=== PATIENT | male | born 1960 | race Caucasian/White ===

== ENCOUNTER 2017-02-25 09:01 | Outpatient (CLI) | payer OTHER ==
[~2017-02-25] VITALS: Ht 188 cm; Wt 70.0 kg
[~2017-02-25 09:01] MED LIST: DILT120C PO; LSNP10T PO; SULF-222 PO
[2017-02-25] MEDS ORDERED: MULT-1067 PO (09:20)
[2017-02-25] MEDS ORDERED: DILT180T7 PO (09:20)
[2017-02-25 09:23] VITALS: BP 126/81
[2017-02-25 09:49] LABS: BASOPHILS % (AUTO) 1 % (0-10); EOSINOPHILS % (AUTO) 0 % (0-10); LYMPHOCYTES # (AUTO) 1.5 X 10^3 (1.0-4.0); LYMPHOCYTES % (AUTO) 27 % (12-44); MEAN CORPUSCULAR HEMOGLOBIN 30 PG (25-34); MEAN CORPUSCULAR HGB CONC 34 G/DL (32-36); MEAN CORPUSCULAR VOLUME 87 FL (80-99); MEAN PLATELET VOLUME 8.6 FL (7.4-10.4); MONOCYTES # (AUTO) 0.5 X 10^3 (0.0-1.0); MONOCYTES % (AUTO) 9 % (0-12); NEUTROPHILS # (AUTO) 3.4 X 10^3 (1.8-7.8); NEUTROPHILS % (AUTO) 63 % (42-75); PLATELET COUNT 277 10^3/uL (130-400); RED BLOOD COUNT 4.79 10^6/uL (4.35-5.85); RED CELL DISTRIBUTION WIDTH 12.7 % (10.0-14.5); WHITE BLOOD COUNT 5.5 10^3/uL (4.3-11.0)
== END 2017-02-25 10:04 | disposition home or self-care (01) ==
LOC: PREOP 09:01
PROVIDERS: ATTEND Surgery
DX: Z01.812 Encounter for preprocedural laboratory examination (principal); Z11.2 Encounter for screening for other bacterial diseases; K40.90 Unilateral inguinal hernia, without obstruction or gangrene, not specified as recurrent
CPT/HCPCS: 36415; 85025; 87081

== ENCOUNTER 2017-03-03 09:20 | Day surgery (SDC) | payer OTHER ==
[~2017-03-03] VITALS: Ht 188 cm; Wt 70.0 kg
[~2017-03-03 09:20] MED LIST changes: +DILT180T7 PO; +MULT-1067 PO
[2017-03-03] MEDS ORDERED: LACTATED RINGERS 1,000 ML IV PRN (09:36)
[2017-03-03] MEDS ORDERED: ceFAZolin 1 GM/NS 50 ML IVPB IV ONE ×2 (09:45)
[2017-03-03] MEDS ORDERED: CATHETER FLUSH 10 ML SYR IV PRN (09:45)
[2017-03-03 09:58] VITALS: BP 124/88
--- NOTE | 2017-03-03 10:13 | Progress Note-Pre Operative ---
Pre-Operative Progress Note H&P Reviewed The H&P was reviewed, patient examined and no changes noted. Date Seen by Provider: Mar 03, 2017 Time Seen by Provider: 10:12 Date H&P Reviewed: Mar 03, 2017 Time H&P Reviewed: 10:13 Pre-Operative Diagnosis: left inguinal hernia HAYDE HUIZAR DO Mar 03, 2017 10:13
[2017-03-03] MEDS ORDERED: LIDOCAINE 1% INJ 20 ML (XYLOCAINE) VIAL ONE (10:48)
[2017-03-03] MEDS ORDERED: BUPIVACAINE 0.5% 30 ML (SENSORCAINE) VIAL ONE (10:48)
[2017-03-03] MEDS ORDERED: LIDOCAINE PF 2% 5 ML (XYLOCAINE) VIAL ONE (10:57)
[2017-03-03] MEDS ORDERED: SEVOFLURANE (ULTANE) 15 ML INHAL SOLN ONE (10:57)
[2017-03-03] MEDS ORDERED: ONDANSETRON 4 MG/2 ML (SDV) Z0FRAN ONE ×2 (10:57→12:26)
[2017-03-03] MEDS ORDERED: LACTATED RINGERS 1,000 ML IV ONE ×2 (10:57→11:40)
[2017-03-03] MEDS ORDERED: MIDAZOLAM 2 MG/2 ML (VERSED) VIAL ONE (10:57)
[2017-03-03] MEDS ORDERED: proPOfol 200 MG/20 ML (DIPRIVAN) VIAL IV ONE (10:57)
[2017-03-03] MEDS ORDERED: DEXAMETHASONE PF 10 MG/ML (DECADRON) VIAL ONE (10:57)
[2017-03-03] MEDS ORDERED: fentaNYL INJECTION 100 MCG/2 ML AMP ONE (10:57)
--- NOTE | 2017-03-03 12:08 | Progress Note-Post Operative ---
Post-Operative Progess Note Surgeon (s)/Industrial Real Estate Agent (s) Surgeon HAYDE HUIZAR DO Industrial Real Estate Agent: Dr. Vyas Pre-Operative Diagnosis recurrent left inguinal hernia Post-Operative Diagnosis direct left inguinal hernia Procedure & Operative Findings Date of Procedure 03/03/17 Procedure Performed/Findings recurrent left inguinal hernia repair c mesh Anesthesia Type general Estimated Blood Loss Estimated blood loss (mL): minimal Specimens/Packing Specimens Removed none HAYDE HIUZAR DO Mar 03, 2017 12:08 pm
[2017-03-03] MEDS ORDERED: HYDR-3812 PO (12:11)
[2017-03-03] MEDS ORDERED: DOCU-143 PO (12:11)
--- NOTE | 2017-03-03 12:13 | Discharge Inst-Simple/Standard ---
Discharge Inst-Standard Discharge Medications New, Converted or Re-Newed RX: RX on Chart Patient Instructions/Follow Up Plan of Care/Instructions/FU: 2 weeks Yeimy Activity as Tolerated: No Discharge Diet: Regular Diet Other Inst to Patient Follow up Appt: Make appointment for 2 week. Instructions: No lifting greater than 10 pounds. No strenuous activity. May shower in 24 hours, no tub bath or soaking. Use incentive spirometer at home as directed. No Smoking Skin/Wound Care: You have special glue over incision it will fall off on it's own. Symptoms to Report: Appetite Changes, Extremity Discoloration, Numbness/Tingling, Swelling Increased , Bleeding Excessive, Eyesight Changes, Pain Increased, Urine Color Change, Constipation(Persistent), Fever over 101 degree F, Pain/Pressure in chest, Urinating Difficulty, Cough Up/Vomit Blood, Heart Beat Irreg/Pounding, Pain/ Pressure in jaw, Vaginal Bleeding Increase, Cramps in feet or legs, Lightheadedness, Pain/Pressure in shoulder, Diarrhea(Persistent), Memory Changes Suddenly, Questions/Concerns, Weight gain consecutive days, Dizziness/ Fainting, Nausea/Vomiting, Shortness of Breath, Weight gain over 2 pounds If questions or concerns contact your physician Or seek help at emergency department. HAYDE HUIZAR DO Mar 03, 2017 12:13 pm
[2017-03-03] MEDS ORDERED: HYDROcodone/APAP 5 MG/325 MG (LORTAB) TAB PO PRN (12:15)
[2017-03-03] MEDS ORDERED: morphine INJ 10 MG/ML 1ML (SYR OR VIAL) ONE (12:26)
[2017-03-03] MEDS ORDERED: morphine INJ 10 MG/ML 1ML (SYR OR VIAL) IVP PRN (12:30)
[2017-03-03] MEDS ORDERED: ONDANSETRON 4 MG/2 ML (SDV) Z0FRAN IVP PRN (12:30)
[2017-03-03 13:10] VITALS: BP 127/87
[2017-03-03 13:40] VITALS: BP 135/87
[2017-03-03 14:10] VITALS: BP 136/88
[2017-03-03 15:00] VITALS: BP 136/88
--- NOTE | 2017-03-04 13:52 | OPERATIVE REPORT ---
PROCEDURE PHYSICIAN: HAYDE HUIZAR DATE OF PROCEDURE: 03/03/2017 PREOPERATIVE DIAGNOSIS: Recurrent left inguinal hernia. POSTOPERATIVE DIAGNOSIS: Direct left inguinal hernia. PROCEDURE: Recurrent left inguinal hernia repair with mesh. SURGEON: Yeimy. BLOCK CUBER: Dr. Vyas, assist in retraction, dissection, and anatomy identification and closure. ANESTHESIA: General. ESTIMATED BLOOD LOSS: Minimal. COMPLICATIONS: None. INDICATIONS: The patient is a 57-year-old male who presents with left inguinal hernia. He has had previous inguinal hernia repair, unsure of the type of repair that he had and when he had it. He understands the risk and benefits of the procedure and wished to proceed with the procedure. Consent was signed on the chart. PROCEDURE: The patient was taken to the operating suite. He was prepped and draped in sterile fashion. A surgical pause was performed. Local anesthetic was infiltrated into the area. Scalpel was used to make a left lower quadrant incision. Dissection was taken down until the external oblique was identified. Previous sutures noted. Lots of scar tissue throughout this area as well. The external ring was identified and then opened, opening up the external oblique as well. There was lots of tissue adherent to the underside of the external oblique which was then mobilized. The spermatic cord was then dissected around, Montezuma drain was placed around it and used for mobilization and continued to identify anatomy. There was a large direct defect present. The hernia contents were of a significant amount of fat. This was able to be reduced down through the defect and the defect closed bringing the transversalis fascia over to the shelving edge. Once the defect was closed, the cord was also identified and there was no indirect defect present. Using Progrip mesh, the mesh was secured to Leonel's ligament and then incorporated around the external ring reinforcing the floor. The external oblique was then closed re-creating the external ring using 3-0 Vicryl. Prior to closure, copious amounts of irrigation was used irrigate and the wound. The subcutaneous tissues were then reapproximated using 3-0 Vicryl. Skin was then closed using 4-0 Vicryl in a running subcuticular fashion. Once closed, the area was washed and dried and Dermabond was placed over the incision. The patient tolerated the procedure well without any complications. He was taken to recovery room in stable condition. Job ID: [id number] Dictated Date: 03/03/2017 14:32:11 Railroad Dispatcher Date: 03/04/2017 13:44:20 / tbk
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
== END 2017-03-03 15:00 | disposition home or self-care (01) ==
LOC: SDC 09:20
PROVIDERS: ATTEND Surgery
DX: K40.41 Unilateral inguinal hernia, with gangrene, recurrent (principal); I10 Essential (primary) hypertension; Z79.899 Other long term (current) drug therapy
CPT/HCPCS: 94664